=== PATIENT | female | born 1975 | race Caucasian/White ===

== ENCOUNTER 2018-09-02 10:19 | Day surgery (SDC) | payer OTHER ==
[2018-08-31 12:04] VITALS: BMI 43.0
[2018-09-02] MEDS ORDERED: Fentanyl 100 MCG/2 ML VIAL ONE ×2 (12:16→13:17)
[2018-09-02] MEDS ORDERED: Midazolam HCl 2 mg/2 ml Vial ONE (12:16)
[2018-09-02] MEDS ORDERED: Gadobenate Dimeglumine 529 MG/1 ML (20ML VIAL) ONE (12:29)
[2018-09-02] MEDS ORDERED: Ondansetron PF 4 MG/2 ML Vial ONE ×2 (13:13→14:53)
[2018-09-02] MEDS ORDERED: Promethazine HCl 25 MG/ML VIAL ONE (13:13)
--- NOTE | 2018-09-02 13:27 | MRI ---
BRAIN MRI WITH AND WITHOUT CONTRAST: INDICATION: Headache. COMPARISON: No prior comparison. FINDINGS: The ventricular system is normal in size. Septum pellucidum and third ventricle are midline. There is no acute territorial infarction, intracranial mass effect, or midline shift. The skull base flow voids are maintained. There is mild mucosal thickening of the paranasal sinuses. IMPRESSION: No acute intracranial abnormalities. POS: C
[2018-09-02] MEDS ORDERED: PROPOFOL 200 MG/20 ML VIAL ONE (14:53)
[2018-09-02] MEDS ORDERED: diphenhydrAMINE 50 MG/ML VIAL ONE (14:53)
[2018-09-02] MEDS ORDERED: Lidocaine 1% PF 5 ML VIAL ONE (14:53)
== END 2018-09-02 14:45 | disposition home or self-care (01) ==
LOC: SDC/OP 10:19
PROVIDERS: ATTEND Neurological Surgery
DX: R51 Headache (principal); Z91.041 Radiographic dye allergy status; Z91.013 Allergy to seafood; Z79.899 Other long term (current) drug therapy
CPT/HCPCS: 70553; J2250; J2405; J2550; J3010